=== PATIENT | female | born 1995 ===

== ENCOUNTER → 2025-01-08 11:48 | Outpatient (CLI) | payer MEDICAID, MEDICARE, SELFPAY ==
[2025-01-08 12:49] LABS: Add Manual Diff / Slide Review NO; Hematocrit 38.8 % (36-46); Hemoglobin 13.3 g/dL (12.0-16.0); Lymphocytes Absolute Auto 1700 /uL (1100-4500); Mean Corpuscular HGB Conc 34.4 % (30-36); Mean Corpuscular Hemoglobin 34.8 PG (26-34); Mean Corpuscular Volume 101.2 fL (80-100); Platelet Count 281 X10^3/uL (150-400)
[2025-01-08 14:32] LABS: Alanine Aminotransferase 21 IU/L (<35); Albumin 4.4 g/dL (3.5-5.0); Albumin Globulin Ratio 1.2 (1.0-2.8); Alkaline Phosphatase 47 U/L (38-126); Blood Urea Nitrogen 9 mg/dL (7-17); Calcium 9.3 mg/dL (8.4-10.2); Carbon Dioxide 19 mmol/L (22-32); Chloride 104 mmol/L (98-107); Cholesterol 227 mg/dL (140-199); Estimated Glomerular Filt Rate > 60 mL/min (>60); Globulin 3.7 g/dL (1.7-4.1); Glucose 82 mg/dL (70-99); HDL Cholesterol 54 mg/dL (40-60); Potassium 4.4 mmol/L (3.4-5.1); Sodium 137 mmol/L (137-145); Total Protein 8.1 g/dL (6.3-8.2); Triglycerides 159 mg/dL (35-150)
[2025-01-08 14:34] LABS: HEMOLYSIS 62 (0-50)
[2025-01-08 15:05] LABS: TSH w/ Reflex to FT4 1.85 uIU/mL (0.47-4.68)
[2025-01-08 22:04] LABS: Hemoglobin A1C% w Est Avg Glu 5.1 % (4.0-6.0)
== END ==
PROVIDERS: PCP Family Medicine; Referring Provider Family Medicine; Visit Provider Family Medicine
DX: Z83.3 Family history of diabetes mellitus (principal); E66.9 Obesity, unspecified; N92.0 Excessive and frequent menstruation with regular cycle; F84.0 Autistic disorder
CPT/HCPCS: 80053; 80061; 83036; 84443; 85025